=== PATIENT | female | born 1945 | race Hispanic/Latino ===

== ENCOUNTER 2022-01-28 06:03 | Observation (INO) | payer MEDICARE ==
[2022-01-25 10:58] LABS: BASOPHILS # (AUTO) 0.1 (0.0-0.1); BASOPHILS % 1.1 % (0.0-1.0); EOSINOPHILS # (AUTO) 0.2 (0.0-0.4); EOSINOPHILS % 3.4 % (0.0-6.0); HEMATOCRIT 46.6 % (34.2-44.1); HEMOGLOBIN 14.9 g/dL (12.0-16.0); LYMPHOCYTES # (AUTO) 1.8 (1.0-3.2); LYMPHOCYTES % 27.9 % (18.0-39.1); MEAN CORPUSCULAR HEMOGLOBIN 30.6 pg (28-32); MEAN CORPUSCULAR VOLUME 95.7 fL (81-99); MONOCYTES # (AUTO) 0.4 (0.2-0.8); MONOCYTES % 5.8 % (4.4-11.3); NEUTROPHILS % 61.6 % (38.7-80.0); PLATELET COUNT 254 x10e3/uL (140-360); RED BLOOD COUNT 4.87 x10e6/uL (3.6-5.1)
[~2022-01-28] VITALS: Ht 157.5 cm; Wt 73.9 kg
[~2022-01-28 06:03] MED LIST: ATORVASTATIN CA20 MG PO; MEGA MULTI FOR1 EACH PO; SERTRALINE HCL50 MG PO; VITAMIN D3 COM1 EACH PO
[2022-01-28] MEDS ORDERED: SODIUM CHLORIDE 0.9% 500ML 500 ML ONE (06:25)
[2022-01-28] MEDS ORDERED: Vancomycin IV 1,000 MG ONE (06:25)
[2022-01-28] MEDS ORDERED: TRANEXAMIC ACID 20 ML ONE (06:25)
[2022-01-28] MEDS ORDERED: CELECOXIB 200 MG CAP ONE (06:57)
[2022-01-28] MEDS ORDERED: DEXAMETHASONE SOD PHOS 10 MG/1 ML VIAL ONE (06:58)
[2022-01-28] MEDS ORDERED: CEFAZOLIN SODIUM 2 GM ONE (06:58)
[2022-01-28] MEDS ORDERED: GABAPENTIN 300 MG CAP ONE (06:58)
[2022-01-28] MEDS ORDERED: ROPIVACAINE 246.25 MG, EPINEPHRINE HCL 1:1000 1ML 0.5 MG, CLONIDINE HCL 0.08 MG, KETORO... INJ ONE ×5 (08:00)
[2022-01-28] MEDS ORDERED: HYDROMORPHONE 1MG/1ML INJ ONE (08:41)
[2022-01-28] MEDS ORDERED: HYDROCODONE/APAP 5MG-325MG TAB PO PRN (09:15)
[2022-01-28] MEDS ORDERED: HYDROCODONE/APAP 7.5MG-325MG 1 EA TAB PO PRN (09:15)
[2022-01-28] MEDS ORDERED: DOCUSATE SODIUM 100 MG CAP PO PRN (09:15)
[2022-01-28] MEDS ORDERED: ONDANSETRON HCL INJ 2MG/ML 2ML 2 MG/ML VIAL IV PRN (09:15)
[2022-01-28] MEDS ORDERED: DIPHENHYDRAMINE HCL INJ 50 MG/ML VIAL IV PRN (09:15)
[2022-01-28 10:17] VITALS: BP 122/78
[2022-01-28 10:21] VITALS: BP 122/78
[2022-01-28 10:22] VITALS: BP 122/78
[2022-01-28] MEDS ORDERED: SODIUM CHLORIDE 0.9% 1000ML 1,000 ML IV SCH (10:45)
[2022-01-28] MEDS ORDERED: EPHEDRINE SULFATE INJ 50 MG/ML VIAL ONE (12:58)
[2022-01-28] MEDS ORDERED: PROPOFOL IV EMULSION 10 MG/ML 20 ML VIAL ONE (12:58)
[2022-01-28] MEDS ORDERED: LIDOCAINE HCL 2% LOCAL INJ 5 ML SDV VIAL INJ ONE (12:58)
[2022-01-28] MEDS ORDERED: SEVOFLURANE INHAL SOLN 250 ML PEN BTL ONE (12:58)
[2022-01-28] MEDS ORDERED: ONDANSETRON HCL INJ 2MG/ML 2ML 2 MG/ML VIAL ONE (12:58)
[2022-01-28] MEDS ORDERED: POVIDONE IODINE 0.05% 0.05 % ML PO ONE (12:58)
[2022-01-28] MEDS ORDERED: ROPIVACAINE 0.5% 5 MG/ML 30 ML SDV ONE (13:07)
[2022-01-28] MEDS ORDERED: EPINEPHRINE HCL 1:1000 1ML 1 MG/ML AMP ONE (13:07)
[2022-01-28 15:47] VITALS: BP 137/63
[2022-01-28] MEDS ORDERED: ASPIRIN81 MG PO (15:51)
[2022-01-28] MEDS ORDERED: CELECOXIB 200 MG CAP PO SCH (17:00)
[2022-01-28] MEDS ORDERED: ASPIRIN 325 MG TAB PO SCH (17:00)
[2022-01-29] MEDS ORDERED: ACETAMINOPHEN 1000 MG/100 ML IV PRN (09:15)
== END 2022-01-28 17:08 | disposition home health service (06) ==
LOC: OR 06:03 → PACU V 09:40 → IMCU 10:00
PROVIDERS: ADMIT Specialist; ATTEND Specialist
DX: M17.12 Unilateral primary osteoarthritis, left knee (principal); E78.5 Hyperlipidemia, unspecified; Z01.812 Encounter for preprocedural laboratory examination; Z01.818 Encounter for other preprocedural examination; Z20.822 Contact with and (suspected) exposure to COVID-19
CPT/HCPCS: 0223U; 27447; 36415; 71046; 73560; 85025; 86850; 86900; 86920; 94799; 97110; 97116; 97161; C1713; C1776 ×3; G0378; J0171; J1100; J1170; J1885; J2001; J2405; J2704; J2795; J3370; J7040

== ENCOUNTER 2023-03-17 08:15 | Observation (INO) | payer MEDICARE ==
[~2023-03-17 08:15] MED LIST changes: +ACETAMINOPHEN 1000 MG/100 ML 0 ML IV ONE; +ASPIRIN81 MG PO; +ROPIVACAINE 246.25 MG, EPINEPHRINE HCL 1:1000 1ML 0.5 MG, CLONIDINE HCL 0.08 MG, KETORO... INJ ONE; +SODIUM CHLORIDE 0.9% 500ML 500 ML ONE; +TRANEXAMIC ACID 20 ML ONE; +Vancomycin IV 500 MG ONE
[2023-03-17] MEDS ORDERED: CELECOXIB 200 MG CAP ONE (08:31)
[2023-03-17] MEDS ORDERED: GABAPENTIN 300 MG CAP ONE (08:31)
[2023-03-17] MEDS ORDERED: DEXAMETHASONE SOD PHOS 10 MG/1 ML VIAL ONE (08:31)
[2023-03-17] MEDS ORDERED: CEFAZOLIN SODIUM 2 GM ONE (08:32)
[2023-03-17] MEDS ORDERED: LACTATED RINGER'S 1,000 ML ONE (08:32)
[2023-03-17] MEDS ORDERED: SODIUM CHLORIDE 0.9% 1000ML 1,000 ML IV SCH (12:15)
[2023-03-17] MEDS ORDERED: ONDANSETRON HCL INJ 2MG/ML 2ML 2 MG/ML VIAL IV PRN (12:15)
[2023-03-17] MEDS ORDERED: HYDROCODONE/APAP 5MG-325MG TAB PO PRN (12:15)
[2023-03-17] MEDS ORDERED: DIPHENHYDRAMINE HCL INJ 50 MG/ML VIAL IV PRN (12:15)
[2023-03-17] MEDS ORDERED: ACETAMINOPHEN 650 MG SUPP PR PRN (12:15)
[2023-03-17] MEDS ORDERED: HYDROCODONE/APAP 7.5MG-325MG 1 EA TAB PO PRN (12:15)
[2023-03-17] MEDS ORDERED: DOCUSATE SODIUM 100 MG CAP PO PRN (12:15)
[2023-03-17] MEDS ORDERED: LIDOCAINE HCL 2% LOCAL INJ 5 ML SDV VIAL INJ ONE (13:16)
[2023-03-17] MEDS ORDERED: EPHEDRINE SULFATE INJ 50 MG/ML VIAL ONE (13:16)
[2023-03-17] MEDS ORDERED: ONDANSETRON HCL INJ 2MG/ML 2ML 2 MG/ML VIAL ONE ×2 (13:16→14:34)
[2023-03-17] MEDS ORDERED: DEXAMETHASONE SOD PHOS INJ 4 MG/ML SDV ONE (13:16)
[2023-03-17] MEDS ORDERED: PROPOFOL IV EMULSION 10 MG/ML 20 ML VIAL ONE (13:16)
[2023-03-17] MEDS ORDERED: SEVOFLURANE INHAL SOLN 250 ML PEN BTL ONE (13:16)
[2023-03-17] MEDS ORDERED: EPINEPHRINE HCL 1:1000 1ML 1 MG/ML AMP ONE (13:20)
[2023-03-17] MEDS ORDERED: ROPIVACAINE 0.5% 5 MG/ML 30 ML SDV ONE (13:20)
[2023-03-17] MEDS ORDERED: MIDAZOLAM HCL 2 MG/2 ML VIAL ONE (13:27)
[2023-03-17] MEDS ORDERED: FENTANYL CITRATE/PF 100MCG/2 ML INJ ONE ×2 (13:27→13:28)
[2023-03-17 15:15] VITALS: BP 132/70; PULSE 80; RESP 17; O2SAT 97
[2023-03-17] MEDS ORDERED: HYDROCODONE/APAP 5MG-325MG TAB ONE (15:19)
[2023-03-17] MEDS ORDERED: ASPIRIN81 MG PO (15:28)
[2023-03-17] MEDS ORDERED: CELECOXIB 100 MG CAP PO SCH (17:00)
[2023-03-17] MEDS ORDERED: ASPIRIN 325 MG TAB PO SCH (17:00)
[2023-03-18] MEDS ORDERED: ACETAMINOPHEN 1000 MG/100 ML IV PRN (12:15)
== END 2023-03-17 15:40 | disposition home health service (06) ==
LOC: OR 08:15 → PACU V 12:03
PROVIDERS: ADMIT Specialist; ATTEND Specialist
DX: M17.11 Unilateral primary osteoarthritis, right knee (principal); Z96.652 Presence of left artificial knee joint; E78.5 Hyperlipidemia, unspecified; M06.9 Rheumatoid arthritis, unspecified; Z01.812 Encounter for preprocedural laboratory examination; Z01.818 Encounter for other preprocedural examination; Z79.899 Other long term (current) drug therapy; Z79.82 Long term (current) use of aspirin; Z88.5 Allergy status to narcotic agent
CPT/HCPCS: 27447; 71046; 73560; 86850; 86900; 97116; 97161; 97530; C1713 ×2; C1776 ×4; G0378; J0171; J0690; J1100 ×2; J1885; J2001; J2250; J2405; J2704; J2795; J3010; J3370; J7040; J7121